=== PATIENT | male | born 1980 | race Two or more races ===

== ENCOUNTER 2021-08-20 09:47 | Emergency (ER) | payer OTHER ==
[~2021-08-20] VITALS: Ht 162.6 cm; Wt 79.2 kg
[2021-08-20 09:57] VITALS: BP 141/74
== END 2021-08-20 11:22 | disposition home or self-care (01) ==
LOC: ED 10:35
DX: U07.1 COVID-19 (principal); B34.9 Viral infection, unspecified; R94.31 Abnormal electrocardiogram [ECG] [EKG]
CPT/HCPCS: 93005; 99284; U0003; U0005